=== PATIENT | male | born 1975 | race Two or more races ===

== ENCOUNTER 2017-12-09 01:57 | Emergency (ER) | payer SELFPAY ==
[~2017-12-09] VITALS: Ht 165.1 cm; Wt 49.2 kg
[2017-12-09] MEDS ORDERED: SODIUM CHLORIDE FLUSH 10ML SYR IVF ONE (02:30)
[2017-12-09] MEDS ORDERED: SODIUM CHLORIDE 0.9% 1,000ML IVBOLUS ONE (02:30)
[2017-12-09 02:50] LABS: ALANINE AMINOTRANSFERASE 44 U/L (12-78); ANION GAP 5 mmol/L (5-15); CALCIUM 8.6 mg/dL (8.5-10.1); CHLORIDE 109 mmol/L (98-107); CREATININE 0.76 mg/dL (0.7-1.3)
[2017-12-09 02:53] LABS: ALKALINE PHOSPHATASE 88 U/L (45-117); BILIRUBIN,TOTAL 4.7 mg/dL (0.2-1.0); TOTAL PROTEIN 6.9 g/dL (6.4-8.2)
[2017-12-09 03:11] LABS: MEAN CORPUSCULAR HEMOGLOBIN 36.5 pg (27.5-34.5); MEAN CORPUSCULAR HGB CONC 32.1 g/dL (33.2-36.2); MEAN CORPUSCULAR VOLUME 113.7 fL (81-97); PLATELET COUNT 472 x10^3/uL (130-400); RED BLOOD COUNT 2.09 x10^6/uL (4.38-5.82); RED CELL DISTRIBUTION WIDTH 29.8 % (9.4-14.8)
[2017-12-09 03:19] VITALS: BP 115/63
[2017-12-09 03:51] LABS: BASOPHILS # (AUTO) 0.12 x10^3/uL (0-0.1); BASOPHILS % (AUTO) 1 % (0-1); EOSINOPHILS # (AUTO) 0.16 x10^3/uL (0-0.4); EOSINOPHILS % (AUTO) 1 % (1-7); LYMPHOCYTES # (AUTO) 5.98 x10^3/uL (1-3.4); LYMPHOCYTES % (AUTO) 34 % (22-44); MD SCAN; MONOCYTES # (AUTO) 2.03 x10^3/uL (0.2-0.8); MONOCYTES % (AUTO) 12 % (2-9); NEUTROPHILS % (AUTO) 52 % (42-75)
== END 2017-12-09 03:21 | disposition home or self-care (01) ==
LOC: ED 03:05
DX: M54.6 Pain in thoracic spine (principal); D63.8 Anemia in other chronic diseases classified elsewhere; Z00.01 Encounter for general adult medical examination with abnormal findings; Z72.9 Problem related to lifestyle, unspecified; Z88.6 Allergy status to analgesic agent
CPT/HCPCS: 36415; 71045; 80053; 85025; 99285